=== PATIENT | male | born 1995 | race American Indian/Alaskan Native ===

== ENCOUNTER 2019-12-15 14:14 | Emergency (ER) | payer SELFPAY ==
[2019-12-15 14:25] VITALS: BP 150/85
== END 2019-12-15 17:46 | disposition left against medical advice (07) ==
LOC: ED 14:14
DX: R50.9 Fever, unspecified (principal); R10.9 Unspecified abdominal pain; R11.2 Nausea with vomiting, unspecified; Z53.21 Procedure and treatment not carried out due to patient leaving prior to being seen by health care provider